=== PATIENT | female | born 1990 | race Two or more races ===

== ENCOUNTER 2021-10-05 18:09 | Emergency (ER) | payer MEDICAID ==
[~2021-10-05] VITALS: Ht 170.2 cm; Wt 77.2 kg
[2021-10-05] MEDS ORDERED: METH4PAK PO (18:35)
[2021-10-05] MEDS ORDERED: AZIT1POW PO (18:35)
[2021-10-05 20:38] VITALS: BP 125/91
== END 2021-10-05 20:40 | disposition home or self-care (01) ==
LOC: ER 18:09
DX: U07.1 COVID-19 (principal); Z79.2 Long term (current) use of antibiotics; Z79.899 Other long term (current) drug therapy
CPT/HCPCS: 36415; 71046; 93005